=== PATIENT | male | born 1950 ===

== ENCOUNTER → 2017-04-17 | Outpatient (CLI) | payer OTHER, MEDICARE | LOC: FLAB 11:59 | PROVIDERS: ATTEND Internal Medicine | DX: M16.0 Bilateral primary osteoarthritis of hip (principal); M53.3 Sacrococcygeal disorders, not elsewhere classified ==

== ENCOUNTER → 2017-05-06 | Outpatient (CLI) | payer OTHER, MEDICARE | LOC: FIMAGING 13:13 | PROVIDERS: ATTEND Internal Medicine | DX: M51.36 Other intervertebral disc degeneration, lumbar region (principal); M47.26 Other spondylosis with radiculopathy, lumbar region; M46.96 Unspecified inflammatory spondylopathy, lumbar region; M46.97 Unspecified inflammatory spondylopathy, lumbosacral region; M48.061 Spinal stenosis, lumbar region without neurogenic claudication ==

== ENCOUNTER 2017-05-09 10:52 | Day surgery (SDC) | payer OTHER, MEDICARE ==
[2017-05-09] MEDS ORDERED: IOPAMIDOL (ISOVUE-M 300) 15 ML VIAL ONE (11:03)
[2017-05-09] MEDS ORDERED: TRIAMCINOLONE ACETONIDE 200 MG/5 ML MDV IM ONE (11:03)
[2017-05-09] MEDS ORDERED: ONDANSETRON DISINTEGRATING 4 MG TAB ONE (12:37)
[2017-05-09] MEDS ORDERED: ONDANSETRON DISINTEGRATING 4 MG TAB PO ONE (14:30)
== END 2017-05-09 13:00 | disposition home or self-care (01) ==
LOC: FIMAGING 10:52
PROVIDERS: ATTEND Radiology Diagnostic Radiology
DX: M51.16 Intervertebral disc disorders with radiculopathy, lumbar region (principal)
CPT/HCPCS: J3301; Q9967